=== PATIENT | female | born 1965 | race Caucasian/White ===

== ENCOUNTER 2017-07-13 10:05 | Day surgery (SDC) | payer OTHER ==
[~2017-07-13] VITALS: Ht 160 cm; Wt 81.7 kg
[~2017-07-13 10:05] MED LIST: GLUCOSAMINE-CH1 EA22 PO; L-LYSINE500 M1 PO; LISINOPRIL20 MG PO; MULTI VITAMIN1 EACH PO; PERCOCET 7.5-31 EACH PO; TURMERIC500 M1 PO
--- NOTE | 2017-07-13 13:50 | NUR ---
LEFT AC CDI ON ARRIVAL TO PACU.
--- NOTE | 2017-07-13 14:03 | NUR ---
07/13/17 1403 Alphonso Gu PT STATES HER PAIN IS IMPROVING AND IS NOW A 5.
--- NOTE | 2017-07-13 15:14 | NUR ---
LE 1425 PT RETURNED FROM PACU C/O R SHOULDER PAIN. 1440 NEW ORDERS RECEIVED. UP TO BATHROOM WITH ONE PERSON ASSIST. VOIDED. BACK IN BED. WARM BLANKETS GIVEN. ICE TO R SHOULDER. 1503 DILAUDID 0.2MG GIVEN IVP. CALL LITE IN PLACE. 1510 EATING JELLO.
[2017-07-13] MEDS ORDERED: NORCO 10-325 T1 EACH PO (16:13)
--- NOTE | 2017-07-14 08:18 | OR ---
[facility] [address], [place] [address] Signed DATE OF SERVICE: 07/13/2017 PREOPERATIVE DIAGNOSIS: Full-thickness rotator cuff tear (supraspinatus) right shoulder. POSTOPERATIVE DIAGNOSIS: Full-thickness rotator cuff tear (supraspinatus) right shoulder. PROCEDURE: Right shoulder arthroscopy with arthroscopic rotator cuff repair and subacromial decompression. SURGEON: Andrew Ovalle MD ANESTHESIA: General. SPECIMENS AND COMPLICATIONS: There were no specimens or complications. BLOOD LOSS: Minimal. PROCEDURE IN DETAIL: The patient was taken to the operating room. After anesthesia was induced by the anesthesia service and the airway secured, the patient was positioned, prepped and draped in a routine sterile fashion. She was placed in a modified beach chair position and the bony typography was outlined with a skin marking pen. Using the standard posterior portal, the arthroscope was introduced into the shoulder joint. An anterior portal was made using a switching stick technique. Diagnostic arthroscopy revealed an unremarkable labrum anteriorly, superiorly and inferiorly. The biceps tendon in the subscap were unremarkable as were the humeral head and the glenoid. The patient had a full-thickness tear of the supraspinatus. The infraspinatus appeared to be completely intact as was the teres. The VAPR electrosurgical device was introduced and a moderate shaggy synovitis within the shoulder joint was gently debrided. We then maneuvered the scope into the subacromial space where there was a rather dense subacromial bursitis. Again, the VAPR was introduced through axillary lateral portal and used to do a subacromial bursectomy. We then used the VAPR to remove the soft tissue off the apex of the greater tuberosity. We then introduced a 4 mm jessi and gently scarified the greater tuberosity. Using an auxiliary anterior superior portal, two 5.5 biocomposite suture anchors were placed right at the articular margin about a centimeter apart. We were able to well past the sutures from the axillary lateral portal using the scorpion giving us several interrupted horizontal mattress sutures through the rotator cuff. We then tied these down which gave us a fairly secure repair. However, to augment the repair, we took Electronically Signed By: ANDREW OVALLE MD 07/14/17 0818 PATIENT NAME: CINDY FALL OPERATIVE REPORT DATE OF : 67 PHYSICIAN: ANDREW OVALLE MD REPORT #: [id number] REPORT IS CONFIDENTIAL AND NOT TO BE RELEASED WITHOUT AUTHORIZATION [facility] [address], [place] [address] Signed four of the strains and then secured them farther distally with a single SwiveL ock giving us a double row repair. This appeared to give us a watertight and a sound repair. We then reintroduced the jessi through the axillary lateral portal and then did a gentle subacromial decompression. The subacromial space was then gently irrigated and drained. The portals were closed and sterile dressings applied. The patient was placed in an UltraSling, awakened to the recovery room where she arrived in stable condition. Counts were correct and antibiotic protocols were followed. MD MARIETTA Chen/Omero /[id number] Electronically Signed By: ANDREW OVALLE MD 07/14/17 0818 PATIENT NAME: JUAN DAVIDCINDY JUAN JASMIN OPERATIVE REPORT DATE OF : 67 PHYSICIAN: ANDREW OVALLE MD REPORT #: [id number] REPORT IS CONFIDENTIAL AND NOT TO BE RELEASED WITHOUT AUTHORIZATION
== END 2017-07-13 16:20 | disposition home or self-care (01) ==
LOC: DS 10:05 → OPS 10:05
PROVIDERS: Orthopaedic Surgery
PROC: 0RNJ4ZZ Release Right Shoulder Joint, Percutaneous Endoscopic Approach (ICD-10-PCS; 2017-07-13)
PROC: 0LQ14ZZ Repair Right Shoulder Tendon, Percutaneous Endoscopic Approach (ICD-10-PCS; principal; 2017-07-13 11:30)
DX: M75.121 Complete rotator cuff tear or rupture of right shoulder, not specified as traumatic (principal); M75.51 Bursitis of right shoulder; M65.811 Other synovitis and tenosynovitis, right shoulder; I10 Essential (primary) hypertension; Z88.5 Allergy status to narcotic agent
CPT/HCPCS: 01630; C1713; J0690; J1100; J1170; J1885; J2250; J2405; J2704; J2795; J3010; J7120